=== PATIENT | male | born 1970 | race Caucasian/White ===

== ENCOUNTER 2017-12-05 08:43 | Emergency (ER) | payer OTHER, BC ==
[~2017-12-05] VITALS: Ht 185.4 cm; Wt 122.5 kg
[~2017-12-05 08:43] MED LIST: ASPEC81 PO; FLUO10CA48 PO; ISR40 PO; LPR25 PO; LPT40 PO; LSN/10125 PO; NTRSLP4 SL; PLV75 PO; PRLSR20 PO
[2017-12-05 08:51] VITALS: TEMP 36.5; Ht 185.4 cm; Wt 122.5 kg
[2017-12-05] MEDS ORDERED: SODIUM CHLORIDE 0.9% 1000ML 1,000 ML IV STA (09:03)
[2017-12-05] MEDS ORDERED: FENTANYL CITRATE INJ 50 MCG/1 ML 2 ML VIAL IV STA (09:03)
--- NOTE | 2017-12-05 09:03 | EMERGENCY ROOM VISIT NOTE ---
History Report prepared by Rosemary: Nahed Esquivel Under the Supervision of: Dr. Roxana Rosales M.D. First contact with patient: 08:53 Chief Complaint: FALL Stated Complaint: FALL History of Present Illness The patient is a 47 year old male who presents to the Emergency Room with complaints of a sudden fall occurring shortly prior to arrival. The patient states that he fell out of a pick-up truck and that the next thing he knew, his co-workers were standing over him. Pt believes he slipped on ice. He complains of pain on the entire left side of his body-his neck, his hip, his leg, and his ankle. He denies having heart fluttering or shortness of breath this morning. He reports a history of a stent and states that he recently had a stress test done. Per records the patient has a history of CAD with a stent in his LAD. Source of History: patient Onset: shortly prior to arrival Position: other (global) Quality: other (fall) Timing: other (sudden ) Associated Symptoms: + neck pain (left), No SOB Note: additional symptoms: pain on the entire left side of body-neck, hip, leg, ankle Review of Systems See HPI for pertinent positives & negatives. A total of 10 systems reviewed and were otherwise negative. Past Medical & Surgical Medical Problems: (1) Biliary colic (2) HTN (hypertension) (3) Hyperlipidemia (4) Psoriasis (5) RLS (restless legs syndrome) Surgical Problems: (1) H/O esophagogastroduodenoscopy (2) S/P cholecystectomy (3) S/P lumbar spinal fusion Family History FH: CAD (coronary artery disease) MGF ( of [place] age 33) PGF ( of [place] age 55) Hypertension Stroke FATHER MOTHER Social History Smoking Status: Former Smoker Alcohol Use: none Drug Use: none Marital Status: single Housing Status: lives alone Occupation Status: employed Current/Historical Medications Scheduled Aspirin (Aspirin Ec), 81 MG PO QAM Atorvastatin (Lipitor), 40 MG PO QAM Clopidogrel (Plavix), 75 MG PO QAM Fluoxetine (Prozac), 10 MG PO QAM Hctz/Lisinopril (Lisinopril/Hctz 10/12.5 Mg), 1 TAB PO QAM Metoprolol Tartrate (Lopressor) (Lopressor), 25 MG PO BID Nitroglycerin (Nitrostat), 0.4 MG UT PRN Ranitidine Hcl (Zantac), 150 MG PO QAM Scheduled PRN Hydrocodone/Acetaminophen 5MG/325MG (Bruceton 5MG/325MG), 1-2 TABLETS PO Q6 PRN for Pain Allergies Coded Allergies: No Known Allergies (Unverified , 12/05/17) Physical Exam Vital Signs Date Time Temp Pulse Resp B/P (MAP) Pulse Ox O2 Delivery O2 Flow Rate FiO2 12/05/17 12:06 57 18 135/69 97 12/05/17 10:54 161/101 12/05/17 09:46 54 12/05/17 08:51 36.5 61 18 160/105 98 Room Air Physical Exam Vital signs reviewed. General: Well-appearing , in no significant distress. Boarded and collared. HEENT: No scleral icterus, PERRLA, neck supple. Atraumatic. Cardiovascular: Regular rate and rhythm, no extra sounds. Pulmonary: Clear to auscultation bilaterally, normal work of breathing. Abdomen: Soft, nontender, nondistended, positive bowel sounds. Musculoskeletal: Tenderness to palpation over left shoulder. No ecchymosis or swelling. Tenderness of low cervical spine. No step-off or deformity. Tenderness to left lower quadrant of abdomen. Moves the left hip without difficulty. Some tenderness to palpation of left iliac crest. Neurologic: Patient awake alert and oriented x 3, full strength in all 4 extremities. Skin: Warm, dry, no rash. No significant abrasions/laceration. Medical Decision & Procedures ER Provider Diagnostic Interpretation: Radiology results as stated below per my review and radiologist interpretation: PELVIS 1 OR 2 VIEW ROUTINE CLINICAL HISTORY: pelvis pain after fall trauma. Pain. COMPARISON: None. DISCUSSION: The bones and joint spaces appear intact. There is no evidence of fracture, dislocation or bony disease. There is no evidence for soft tissue swelling. IMPRESSION: Negative study. The above report was generated using voice recognition software. It may contain grammatical, syntax or spelling errors. Electronically signed by: Lorenzo Gabriel M.D. 12/05/2017 10:28 AM Dictated Date/Time: 12/05/2017 10:27 AM HEAD WITHOUT CONTRAST (CT) CLINICAL HISTORY: 47 years-old Male with fall, CHI. Acute head injury status post fall. TECHNIQUE: Multiple axial CT images of the head were obtained without contrast. A dose lowering technique was utilized adhering to the principles of ALARA. COMPARISON: CT cervical spine of same day. FINDINGS: No acute intracranial hemorrhage, midline shift, intracranial mass, hydrocephalus, territorial ischemia or abnormal extra-axial collection. The calvarium is intact. The paranasal sinuses, mastoid air cells, and middle ear cavities are clear. IMPRESSION: No acute intracranial abnormality. The above report was generated using voice recognition software. It may contain grammatical, syntax or spelling errors. Electronically signed by: Lazaro Fonseca M.D. 12/05/2017 9:53 AM Dictated Date/Time: 12/05/2017 9:[address] OF THE CERVICAL SPINE CLINICAL HISTORY: Neck pain status post trauma COMPARISON STUDY: No previous studies for comparison. CT DOSE: 1209.41 mGy.cm TECHNIQUE: CT scan of the cervical spine was performed from the skull base to the thoracic inlet. Images are reviewed in the axial, sagittal, and coronal planes. IV contrast was not administered for this examination. A dose lowering technique was utilized adhering to the principles of ALARA. FINDINGS: The visualized portions of the lung apices reveal no evidence of pneumothorax. The prevertebral soft tissues are normal. No fractures or subluxations are visualized. There are mild multilevel degenerative changes IMPRESSION: No evidence of acute fracture or traumatic subluxation. Electronically signed by: Smith Dong M.D. 12/05/2017 9:56 AM Dictated Date/Time: 12/05/2017 9:54 AM L SHOULDER MIN 2 VIEWS ROUTINE HISTORY: 47 years-old Male L shoulder pain after fall acute left shoulder pain status post fall COMPARISON: Chest radiograph 11/07/2016 TECHNIQUE: 3 views of the left shoulder FINDINGS: There is no acute fracture, dislocation or significant degenerative changes. No opaque foreign body or significant soft tissue swelling identified. IMPRESSION: No acute fracture or dislocation. The above report was generated using voice recognition software. It may contain grammatical, syntax or spelling errors. Electronically signed by: Lazaro Fonseca M.D. 12/05/2017 10:27 AM Dictated Date/Time: 12/05/2017 10:26 AM ABD/PELVIS IV CONTRAST ONLY CT DOSE: 1682.34 mGy.cm HISTORY: Trauma. Pain. L sided abdominal pain after fall. Tender LLQ TECHNIQUE: Multiaxial CT images of the abdomen and pelvis were performed following the use of intravenous contrast. A dose lowering technique was utilized adhering to the principles of ALARA. COMPARISON STUDY: None. FINDINGS: Minimal dependent basilar atelectasis. Liver spleen and pancreas enhance uniformly. Prior cholecystectomy. The adrenal glands are normal. Kidneys enhance uniformly. Bowel pattern is nonobstructive throughout the abdomen and pelvis. Bladder is midline. No free fluid within the pelvic cul-de-sac. Mild degenerative change of the osseous structures with no acute process. IMPRESSION: No significant abnormality identified within the abdomen or pelvis. The above report was generated using voice recognition software. It may contain grammatical, syntax or spelling errors. Electronically signed by: Lorenzo Gabriel M.D. 12/05/2017 11:25 AM Dictated Date/Time: 12/05/2017 11:21 AM Laboratory Results 12/05/17 09:25 Red Blood Count 4.76, Mean Corpuscular Volume 90.3, Mean Corpuscular Hemoglobin 31.3, Mean Corpuscular Hemoglobin Concent 34.7, Mean Platelet Volume 9.0, Neutrophils (%) (Auto) 61.3, Lymphocytes (%) (Auto) 26.9, Monocytes (%) (Auto) 8.9, Eosinophils (%) (Auto) 2.5, Basophils (%) (Auto) 0.2, Neutrophils # (Auto) 2.69, Lymphocytes # (Auto) 1.18, Monocytes # (Auto) 0.39, Eosinophils # (Auto) 0.11, Basophils # (Auto) 0.01 12/05/17 09:25 Test 12/05/17 09:25 White Blood Count 4.39 K/uL (4.8-10.8) Red Blood Count 4.76 M/uL (4.7-6.1) Hemoglobin 14.9 g/dL (14.0-18.0) Hematocrit 43.0 % (42-52) Mean Corpuscular Volume 90.3 fL (80-100) Mean Corpuscular Hemoglobin 31.3 pg (25-34) Mean Corpuscular Hemoglobin Concent 34.7 g/dl (32-36) Platelet Count 149 K/uL (130-400) Mean Platelet Volume 9.0 fL (7.4-10.4) Neutrophils (%) (Auto) 61.3 % Lymphocytes (%) (Auto) 26.9 % Monocytes (%) (Auto) 8.9 % Eosinophils (%) (Auto) 2.5 % Basophils (%) (Auto) 0.2 % Neutrophils # (Auto) 2.69 K/uL (1.4-6.5) Lymphocytes # (Auto) 1.18 K/uL (1.2-3.4) Monocytes # (Auto) 0.39 K/uL (0.11-0.59) Eosinophils # (Auto) 0.11 K/uL (0-0.5) Basophils # (Auto) 0.01 K/uL (0-0.2) RDW Standard Deviation 43.6 fL (36.4-46.3) RDW Coefficient of Variation 13.3 % (11.5-14.5) Immature Granulocyte % (Auto) 0.2 % Immature Granulocyte # (Auto) 0.01 K/uL (0.00-0.02) Anion Gap 6.0 mmol/L (3-11) Est Creatinine Clear Calc Drug Dose 111.6 ml/min Estimated GFR () 90.5 Estimated GFR (Non- 78.1 BUN/Creatinine Ratio 16.7 (10-20) Calcium Level 9.3 mg/dl (8.5-10.1) Total Bilirubin 0.8 mg/dl (0.2-1) Direct Bilirubin 0.1 mg/dl (0-0.2) Aspartate Amino Transf (AST/SGOT) 22 U/L (15-37) Alanine Aminotransferase (ALT/SGPT) 45 U/L (12-78) Alkaline Phosphatase 97 U/L (45-117) Total Protein 7.7 gm/dl (6.4-8.2) Albumin 4.1 gm/dl (3.4-5.0) Laboratory results per my review. Medications Administered Medications (Trade) Dose Ordered Sig/Heriberto Route Start Time Stop Time Status Last Admin Dose Admin Sodium Chloride 1,000 ml @ 150 mls/hr Q6H40M STAT IV 12/05/17 09:03 12/05/17 12:25 DC 12/05/17 09:29 150 MLS/HR Fentanyl Citrate (Fentanyl Inj) 100 mcg NOW STAT IV 12/05/17 09:03 12/05/17 09:06 DC 12/05/17 09:27 100 MCG Morphine Sulfate (MoRPHine SULFATE INJ) 6 mg NOW STAT IV 12/05/17 10:04 12/05/17 10:06 DC 12/05/17 10:53 6 MG Ondansetron HCl (Zofran Inj) 4 mg NOW STAT IV 12/05/17 10:04 12/05/17 10:06 DC 12/05/17 10:50 4 MG ECG Indication: weakness Rate (beats per minute): 58 Rhythm: sinus bradycardia Findings: no acute ischemic change, no ectopy Change: Patient's Electrocardiogram interpreted by [facility] ED Course 0852: Past medical records reviewed. The patient was evaluated in room B4B. A complete history and physical examination was performed. 0903: Ordered Fentanyl Inj 100 mcg IV, Sodium Chloride 1,000 ml @ 150 mls/hr IV. 1004: Ordered Zofran Inj 4 mg IV, Morphine Sulfate 6 mg IV. 1200: Upon reevaluation, the patient appeared to have improvement of his symptoms. I discussed findings with him. He verbalized agreement of the treatment plan. He was discharged home. Medical Decision Differential Diagnoses: Intracranial injury, cervical spine injury, intrathoracic injury, intra- abdominal injury, musculoskeletal injury. This pt was evaluated and appeared to be in some discomfort. IV access was obtained and lab work was drawn. Pt was placed on the medication assistant. Pt was rolled off of the backboard, clothing removed. IV access was obtained and lab work was drawn. Pt was given IV fentanyl for his discomfort and hydrated with NSS. EKG reveals a sinus nolvia without ectopy or ischemia. D/t pt's history, cardiac enzymes were performed and are negative. CT head and neck are negative for acute injury. CXR is clear. shoulder and pelvis XR are neg. Pt continued to c/o pain "all over." On reevaluation, the pain was reproducible in the LLQ. A CT scan was performed and is neg for acute trauma. Pt did receive IV morphine for pain. The etiology of the fall is unclear, but does seem to be mechanical. His stated to nursing that he has a low pain tolerance. Pt was d/c to f/u with his PCP as scheduled this week. He will return to the ED for worsening of symptoms or any medical concerns. Medication Reconcilliation Current Medication List: was personally reviewed by [facility] Blood Pressure Screening Patient's blood pressure: Elevated blood pressure Blood pressure disposition: Elevated BP felt to be situational Impression Primary Impression: Left shoulder pain Additional Impression: Fall Scribe Attestation The scribe's documentation has been prepared under my direction and personally reviewed by me in its entirety. I confirm that the note above accurately reflects all work, treatment, procedures, and medical decision making performed by me. Departure Information Dispostion Home / Self-Care Prescriptions Hydrocodone/Acetaminophen 5MG/325MG (Bruceton 5MG/325MG) Tab 1-2 TABLETS PO Q6 Y for Pain, #14 TAB Prov: Roxana Rosales M.D. 12/05/17 Referrals Kvng Page DO (PCP) Forms HOME CARE DOCUMENTATION FORM, IMPORTANT VISIT INFORMATION Patient Instructions My [facility] Additional Instructions Diagnosis: Left shoulder pain, fall Bruceton one to 2 tabs every 6 hours as needed for pain. Do not drive or operate machinery with this medication. Do not take Tylenol with this medication. Ice intermittently to the left shoulder. Follow-up with your physician for reevaluation this week. Return to the emergency department for worsening of symptoms or any medical concerns. Problem Qualifiers
[2017-12-05] MEDS ORDERED: RANI150T3 PO (09:07)
[2017-12-05] MEDS ORDERED: ATOR-24 PO (09:13)
[2017-12-05] MEDS ORDERED: CLOP1TAB15 PO (09:13)
[2017-12-05] MEDS ORDERED: METO25TA56 PO (09:13)
[2017-12-05] MEDS ORDERED: ASPI81TA28 PO (09:13)
[2017-12-05] MEDS ORDERED: NTRGSL/4 UT (09:13)
[2017-12-05 09:44] LABS: BASO % 0.2 %; BASO ABS # 0.01 K/uL (0-0.2); EOS % 2.5 %; EOS ABS # 0.11 K/uL (0-0.5); HEMOGLOBIN 14.9 g/dL (14.0-18.0); IG# 0.01 K/uL (0.00-0.02); LYMPH % 26.9 %; LYMPH ABS # 1.18 K/uL (1.2-3.4); MEAN CELL VOLUME 90.3 fL (80-100); MEAN CORPUSCULAR HEMOGLOBIN 31.3 pg (25-34); MEAN CORPUSCULAR HGB CONC 34.7 g/dl (32-36); MONO % 8.9 %; MONO ABS # 0.39 K/uL (0.11-0.59); NEUT % 61.3 %; NEUT ABS # 2.69 K/uL (1.4-6.5); PLATELET COUNT 149 K/uL (130-400); RED CELL DISTRIBUTION WIDTH CV 13.3 % (11.5-14.5); RED CELL DISTRIBUTION WIDTH SD 43.6 fL (36.4-46.3); WHITE BLOOD COUNT 4.39 K/uL (4.8-10.8)
--- NOTE | 2017-12-05 09:54 | DIAGNOSTIC IMAGING REPORT ---
HEAD WITHOUT CONTRAST (CT) CLINICAL HISTORY: 47 years-old Male with fall, CHI. Acute head injury status post fall. TECHNIQUE: Multiple axial CT images of the head were obtained without contrast. A dose lowering technique was utilized adhering to the principles of ALARA. COMPARISON: CT cervical spine of same day. FINDINGS: No acute intracranial hemorrhage, midline shift, intracranial mass, hydrocephalus, territorial ischemia or abnormal extra-axial collection. The calvarium is intact. The paranasal sinuses, mastoid air cells, and middle ear cavities are clear. IMPRESSION: No acute intracranial abnormality. The above report was generated using voice recognition software. It may contain grammatical, syntax or spelling errors. Electronically signed by: Lazaro Fonseca M.D. 12/05/2017 9:53 AM Dictated Date/Time: 12/05/2017 9:47 AM
--- NOTE | 2017-12-05 09:57 | DIAGNOSTIC IMAGING REPORT ---
CT OF THE CERVICAL SPINE CLINICAL HISTORY: Neck pain status post trauma COMPARISON STUDY: No previous studies for comparison. CT DOSE: 1209.41 mGy.cm TECHNIQUE: CT scan of the cervical spine was performed from the skull base to the thoracic inlet. Images are reviewed in the axial, sagittal, and coronal planes. IV contrast was not administered for this examination. A dose lowering technique was utilized adhering to the principles of ALARA. FINDINGS: The visualized portions of the lung apices reveal no evidence of pneumothorax. The prevertebral soft tissues are normal. No fractures or subluxations are visualized. There are mild multilevel degenerative changes IMPRESSION: No evidence of acute fracture or traumatic subluxation. Electronically signed by: Smith Dong M.D. 12/05/2017 9:56 AM Dictated Date/Time: 12/05/2017 9:54 AM
[2017-12-05 09:59] LABS: ALBUMIN 4.1 gm/dl (3.4-5.0); CALCIUM 9.3 mg/dl (8.5-10.1); CREATININE 1.11 mg/dl (0.60-1.40)
[2017-12-05 10:02] LABS: TOTAL PROTEIN 7.7 gm/dl (6.4-8.2)
[2017-12-05] MEDS ORDERED: ONDANSETRON INJ 2 MG/ML 2 ML VIAL IV STA (10:04)
[2017-12-05] MEDS ORDERED: MoRPHine SULFATE 10 MG/ML CARP/VIAL IV STA (10:04)
--- NOTE | 2017-12-05 10:29 | DIAGNOSTIC IMAGING REPORT ---
PELVIS 1 OR 2 VIEW ROUTINE CLINICAL HISTORY: pelvis pain after fall trauma. Pain. COMPARISON: None. DISCUSSION: The bones and joint spaces appear intact. There is no evidence of fracture, dislocation or bony disease. There is no evidence for soft tissue swelling. IMPRESSION: Negative study. The above report was generated using voice recognition software. It may contain grammatical, syntax or spelling errors. Electronically signed by: Lorenzo Gabriel M.D. 12/05/2017 10:28 AM Dictated Date/Time: 12/05/2017 10:27 AM
--- NOTE | 2017-12-05 10:29 | DIAGNOSTIC IMAGING REPORT ---
L SHOULDER MIN 2 VIEWS ROUTINE HISTORY: 47 years-old Male L shoulder pain after fall acute left shoulder pain status post fall COMPARISON: Chest radiograph 11/07/2016 TECHNIQUE: 3 views of the left shoulder FINDINGS: There is no acute fracture, dislocation or significant degenerative changes. No opaque foreign body or significant soft tissue swelling identified. IMPRESSION: No acute fracture or dislocation. The above report was generated using voice recognition software. It may contain grammatical, syntax or spelling errors. Electronically signed by: Lazaro Fonseca M.D. 12/05/2017 10:27 AM Dictated Date/Time: 12/05/2017 10:26 AM
[2017-12-05] MEDS ORDERED: OPTIRAY 320 IV PRN (11:00)
--- NOTE | 2017-12-05 11:26 | DIAGNOSTIC IMAGING REPORT ---
ABD/PELVIS IV CONTRAST ONLY CT DOSE: 1682.34 mGy.cm HISTORY: Trauma. Pain. L sided abdominal pain after fall. Tender LLQ TECHNIQUE: Multiaxial CT images of the abdomen and pelvis were performed following the use of intravenous contrast. A dose lowering technique was utilized adhering to the principles of ALARA. COMPARISON STUDY: None. FINDINGS: Minimal dependent basilar atelectasis. Liver spleen and pancreas enhance uniformly. Prior cholecystectomy. The adrenal glands are normal. Kidneys enhance uniformly. Bowel pattern is nonobstructive throughout the abdomen and pelvis. Bladder is midline. No free fluid within the pelvic cul-de-sac. Mild degenerative change of the osseous structures with no acute process. IMPRESSION: No significant abnormality identified within the abdomen or pelvis. The above report was generated using voice recognition software. It may contain grammatical, syntax or spelling errors. Electronically signed by: Lorenzo Gabriel M.D. 12/05/2017 11:25 AM Dictated Date/Time: 12/05/2017 11:21 AM
[2017-12-05] MEDS ORDERED: HYDR-5688 PO (11:46)
[2017-12-05 12:06] VITALS: BP 135/69; PULSE 57; O2SAT 97
== END 2017-12-05 12:07 | disposition home or self-care (01) ==
LOC: EDBD 08:43 → C.EDB 08:44
DX: M25.512 Pain in left shoulder (principal); M54.2 Cervicalgia; M25.552 Pain in left hip; M79.605 Pain in left leg; M25.572 Pain in left ankle and joints of left foot; R10.32 Left lower quadrant pain; W17.89XA Other fall from one level to another, initial encounter; I25.10 Atherosclerotic heart disease of native coronary artery without angina pectoris; Z95.5 Presence of coronary angioplasty implant and graft; I10 Essential (primary) hypertension; E78.5 Hyperlipidemia, unspecified; L40.9 Psoriasis, unspecified; G25.81 Restless legs syndrome; Z98.1 Arthrodesis status; Z79.82 Long term (current) use of aspirin; Z79.02 Long term (current) use of antithrombotics/antiplatelets; Z87.891 Personal history of nicotine dependence; Z82.49 Family history of ischemic heart disease and other diseases of the circulatory system; Z82.3 Family history of stroke